=== PATIENT | male | born 1940 | race Caucasian/White ===

== ENCOUNTER → 2020-09-19 | Outpatient (CLI) | payer OTHER ==
[2020-09-19 10:49] LABS: HEMATOCRIT 27.6 % (42.0-52.0); HEMOGLOBIN 8.7 gm/dL (14.0-18.0); MCH 22.8 pg (26.0-34.0); MCHC 31.5 g/dL (28.0-37.0); MCV 72.2 fL (80.0-100.0); MPV 7.7 fl. (7.2-11.1); RBC 3.82 mil/uL (4.50-6.00); RDW-CV 17.6 % (10.5-14.5); WBC 6.8 thou/uL (4.0-11.0)
== END ==
LOC: M.LAB 10:18
PROVIDERS: ATTEND Internal Medicine Cardiovascular Disease
DX: I25.10 Atherosclerotic heart disease of native coronary artery without angina pectoris (principal); E78.00 Pure hypercholesterolemia, unspecified